=== PATIENT | female | born 1950 | race African-American/Black ===

== ENCOUNTER → 2020-07-07 | Outpatient (CLI) | payer MEDICARE, OTHER ==
[2015-07-03 15:43] VITALS: BP 106/72
[~2020-07-07] MED LIST: ACET1TAB33 PO; CELE100C PO; CENTRUM CHEWAB1 EACH PO; CHOL100013 PO; MELO15TA23 PO; NAPR220T70 PO; OXYC1TAB15 PO; WARF-31 PO
--- NOTE | 2020-07-07 13:49 | EKG ---
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
[2020-07-07 14:09] LABS: BASO % 0 % (0-3); EOS % 1 % (0-3); HEMATOCRIT 38.8 % (36.0-47.0); HEMOGLOBIN 12.7 g/dL (12.0-15.5); LYMPH # 1.6 x10^3/uL (1.0-4.8); LYMPH % 44 % (24-48); MEAN CORPUSCULAR HEMOGLOBIN 30 pg (25-35); MEAN CORPUSCULAR HGB CONC 33 g/dL (31-37); MEAN CORPUSCULAR VOLUME 91 fL (79-100); MONO # 0.3 x10^3/uL (0.0-1.1); MONO % 8 % (0-9); NEUT # 1.8 x10^3/uL (1.8-7.7); NEUT % 47 % (31-73); PLATELET COUNT 239 x10^3/uL (140-400); RED BLOOD COUNT 4.28 x10^6/uL (3.50-5.40); RED CELL DISTRIBUTION WIDTH 14.5 % (11.5-14.5); WHITE BLOOD COUNT 3.7 x10^3/uL (4.0-11.0)
[2020-07-07 14:10] LABS: ALBUMIN 3.9 g/dL (3.4-5.0); CALCIUM 8.6 mg/dL (8.5-10.1); GFR 66.5; POTASSIUM 3.9 mmol/L (3.5-5.1)
[2020-07-07 14:12] LABS: PROTHROMBIN TIME PATIENT 12.8 SEC (11.7-14.0)
--- NOTE | 2020-07-07 14:56 | RAD ---
Chest, PA and Lateral: Technique: PA and lateral views of the chest were obtained. History: Presurgical evaluation. Comparison: None. Findings/ impression: Mild cardiomegaly. There is small focal airspace opacity or mass identified in the retrocardiac regio n best seen on the lateral view. Recommend follow-up CT for further evaluation. Electronically signed by: Samuel Serna MD (07/07/2020 2:53 PM) [id number]
[2020-07-08 02:13] LABS: HEMOGLOBIN A1C 5.6 % (4.8-5.6)
== END ==
LOC: SURGPAT 12:37
PROVIDERS: ATTEND Orthopaedic Surgery
DX: Z01.818 Encounter for other preprocedural examination (principal); M17.12 Unilateral primary osteoarthritis, left knee; I51.7 Cardiomegaly
CPT/HCPCS: 36415; 71046; 80048; 82040; 83036; 85025; 85610; 85651; 87641; 93005

== ENCOUNTER → 2020-07-15 | Outpatient (CLI) | payer MEDICARE, OTHER ==
[2015-07-03 15:43] VITALS: BP 106/72
--- NOTE | 2020-07-15 09:36 | RAD ---
CT THORAX WO History: Chest pain Comparison: None. Technique: Noncontrast CT of the chest. Findings: Assessment is limited by lack of IV contrast. Aorta and great vessels: No aneurysm of the aortic arch or thoracic aorta is seen. Tortuous contours. No significant atherosclerotic calcification. Thyroid: No significant abnormalities. Mediastinum and caleb: Calcified subcarinal lymph nodes. No enlarged adenopathy. Esophagus: The visualized esophagus is normal. Heart: The heart is normal in size. There is no pericardial effusion. No coronary artery calcificatio n. Trachea: The visualized tracheobronchial tree is normal. Lungs: No airspace consolidation. Calcified right lung base 5 mm granuloma. Pleural space: There is no pneumothorax or pleural effusion. Upper abdomen: 1.3 cm right renal pelvic nephrolith. 3 mm right upper pole nephrolith. Cholecystectom y clips. 1.5 cm right hepatic lobe hypodensity measuring 24 Hounsfield units. Partially visualized la paroscopic adjustable band in appropriate position with filling port the anterior abdominal wall. Osseous structures and soft tissues: Multilevel degenerative changes of the spine. Impression: 1. No etiology for chest pain identified. 2. Calcified granulomatous disease in the subcarinal lymph nodes and right lung base. 3. Indeterminate 1.5 cm right hepatic lobe hypodensity may represent hemangioma. Recommend liver MRI or CT with contrast for complete evaluation. 4. Right cholelithiasis including 1.3 cm renal pelvic nephrolith. ------ Exposure: One or more of the following individualized dose reduction techniques were utilized for thi s examination: 1. Automated exposure control 2. Adjustment of the mA and/or kV according to patient size 3. Use of iterative reconstruction technique. Electronically signed by: Hermes Berry MD (07/15/2020 9:33 AM) [facility]
== END ==
LOC: CT 08:22
PROVIDERS: ATTEND Orthopaedic Surgery
DX: J84.10 Pulmonary fibrosis, unspecified (principal); J98.4 Other disorders of lung
CPT/HCPCS: 71250

== ENCOUNTER 2020-07-27 06:05 | Inpatient (IN) | payer MEDICARE, OTHER ==
[2020-07-07 13:10] VITALS: BP 149/107
[2020-07-27] VITALS (12 sets, daily range): BP systolic 104–156; BP diastolic 68–94
[~2020-07-27] VITALS: Ht 170.2 cm; Wt 106.2 kg
[~2020-07-27 06:05] MED LIST changes: +ACETAMINOPHEN 500 MG TABLET PO PRN; +CELECOXIB 100 MG CAPSULE. PO PRN; +HYDROmorphone 2 MG/ML VIAL IVP PRN; +IV RINGERS,LACTATED 1000ML 1,000 ML IV SCH; +MORPHINE SULFATE 2 MG/ML VIAL. IVP PRN; +TRANEXAMIC ACID 1,000 MG in IV NS 50ML -- 1ST BAG INJ ONE; +TV=100ml MORPHINE 5 MG, KETOROLAC 30 MG, ROPIVacaine 0.5% PF 60 ML, EPINEPH... INT ART ONE; +fentaNYL PF VIAL 100 MCG/2 ML VIAL IVP PRN
[2020-07-27] MEDS ORDERED: PROPOFOL 10 MG/ML (20ML) VIAL. IV ONE (06:51)
[2020-07-27] MEDS ORDERED: LIDOCAINE 2% PF 5 ML VIAL. ONE (06:51)
[2020-07-27] MEDS ORDERED: fentaNYL PF VIAL 100 MCG/2 ML VIAL ONE ×3 (06:51→10:40)
[2020-07-27] MEDS ORDERED: TOBRAMYCIN POWDER 1.2 GM VIAL. ONE (07:01)
[2020-07-27] MEDS ORDERED: BUPIVACAINE MPF 0.25% 30 ML VIAL. ONE (07:01)
[2020-07-27] MEDS ORDERED: TRANEXAMIC ACID in NS IVPB 50 ML ONE (07:01)
[2020-07-27] MEDS ORDERED: methylPREDNISolone ACETATE 80 MG/ML VIAL. ONE (07:01)
[2020-07-27] MEDS ORDERED: VANCOMYCIN 1 GM VIAL. ONE ×2 (07:02)
[2020-07-27] MEDS ORDERED: DEXAMETHASONE SOD PHOS 4 MG/ML VIAL ONE (07:42)
[2020-07-27] MEDS ORDERED: SEVOFLURANE 61 TO 120 MINUTES. IH ONE ×2 (07:42→10:15)
--- NOTE | 2020-07-27 07:47 | PDOC1 ---
History and Physical Date of Admission Date of Admission DATE: 07/27/20 TIME: 07:42 Identification/Chief Complaint Chief Complaint Left knee osteoarthritis pain Source Source: Chart review, Patient History of Present Illness History of Present Illness 70-year-old woman with left knee osteoarthritis, here today for elective left total knee arthroplasty. Previous patient whose right knee I replaced on 06/30/15; she is very happy with this knee. Now, she locates progressive knee pain for years that has recently progressed. Her pain is mostly medial with giving out that scares her of falling. Her pain is impacting her quality of life and ability to participate in desired activities. So far, she's tried modified activity, rest, bracing, and NSAIDs without relief. She does form keloid scars. Denies smoking or any known metal/nickel allergy. Past Medical History Musculoskeletal: Osteoarthritis Past Surgical History Past Surgical History total right knee arthroplasty back surgery lap band Bunionectomy cholecystectomy Family History Family History: Heart Disease, Kidney Disease Social History Smoke: No ALCOHOL: occassional Current Medications Current Medications Current Medications Fentanyl Citrate (Fentanyl 2ml Vial) 25 mcg PRN Q5MIN PRN IVP MILD PAIN 1-3; Start 07/27/20 at 06:00; Stop 07/27/20 at 20:00 Fentanyl Citrate (Fentanyl 2ml Vial) 50 mcg PRN Q5MIN PRN IVP MODERATE PAIN 4- 6; Start 07/27/20 at 06:00; Stop 07/27/20 at 20:00 Morphine Sulfate (Morphine Sulfate) 1 mg PRN Q10MIN PRN IVP SEVERE PAIN 7-10; Start 07/27/20 at 06:00; Stop 07/27/20 at 20:00 Ringer's Solution 1,000 ml @ 30 mls/hr Q24H IV Last administered on 07/27/20at 07:18; Start 07/27/20 at 06:00; Stop 07/27/20 at 17:59 Hydromorphone HCl (Dilaudid) 0.5 mg PRN Q10MIN PRN IVP SEVERE PAIN 7-10, 2nd C HOICE; Start 07/27/20 at 06:00; Stop 07/27/20 at 20:00 Prochlorperazine Edisylate (Compazine) 5 mg PACU PRN PRN IVP NAUSEA, MRX1; Start 07/27/20 at 06:00; Stop 07/27/20 at 20:00 Celecoxib (CeleBREX) 400 mg 1X PREOP PRN PO PRIOR TO PROCEDURE; Start 07/27/20 at 06:00; Stop 07/27/20 at 15:00 Acetaminophen (Tylenol) 1,000 mg 1X PREOP PRN PO PRIOR TO PROCEDURE Last administered on 07/27/20at 07:19; Start 07/27/20 at 06:00; Stop 07/27/20 at 18:00 Cefazolin Sodium/ Dextrose 50 ml @ 100 mls/hr 1X PREOP PRN IV PRIOR TO PROCEDURE; Start 07/27/20 at 06:00; Stop 07/27/20 at 18:00 Morphine Sulfate 5 mg/Ketorolac Tromethamine 30 mg/Ropivacaine 60 ml/Epinephrine HCl 0.5 mg/Sodium Chloride 100 ml @ 100 mls/hr 1X PERIOP ONCE INT ART ; Start 07/27/20 at 06:00; Stop 07/27/20 at 06:59; Status DC Tranexamic Acid 50 ml @ 50 mls/hr 1X PERIOP ONCE INJ ; Start 07/27/20 at 06:00; Stop 07/27/20 at 06:59; Status DC Tranexamic Acid 50 ml @ 50 mls/hr 1X PERIOP ONCE INJ ; Start 07/27/20 at 08:00; Stop 07/27/20 at 08:59 Propofol (Diprivan) 200 mg STK-MED ONCE IV ; Start 07/27/20 at 06:51; Stop 07/27/20 at 06:51; Status DC Lidocaine HCl (Lidocaine Pf 2% Vial) 5 ml STK-MED ONCE .ROUTE ; Start 07/27/20 at 06:51; Stop 07/27/20 at 06:51; Status DC Fentanyl Citrate (Fentanyl 2ml Vial) 100 mcg STK-MED ONCE .ROUTE ; Start 07/27/20 at 06:51; Stop 07/27/20 at 06:51; Status DC Bupivacaine HCl (Sensorcaine Mpf 0.25%) 30 ml STK-MED ONCE .ROUTE ; Start 07/27/20 at 07:01; Stop 07/27/20 at 07:01; Status DC Tranexamic Acid 50 ml @ As Directed STK-MED ONCE .ROUTE ; Start 07/27/20 at 07:01; Stop 07/27/20 at 07:01; Status DC Tobramycin Sulfate (Tobramycin Powder) 1.2 gm STK-MED ONCE .ROUTE ; Start 07/27/20 at 07:01; Stop 07/27/20 at 07:01; Status DC Methylprednisolone Acetate (DEPO-Medrol 80MG VIAL) 80 mg STK-MED ONCE .ROUTE ; Start 07/27/20 at 07:01; Stop 07/27/20 at 07:01; Status DC Tranexamic Acid 50 ml @ As Directed STK-MED ONCE .ROUTE ; Start 07/27/20 at 07:01; Stop 07/27/20 at 07:02; Status DC Vancomycin HCl (Vancomycin) 1 gm STK-MED ONCE .ROUTE ; Start 07/27/20 at 07:02; Stop 07/27/20 at 07:02; Status DC Vancomycin HCl (Vancomycin) 1 gm STK-MED ONCE .ROUTE ; Start 07/27/20 at 07:02; Stop 07/27/20 at 07:02; Status DC Active Scripts Active Reported Acetaminophen-Cod #3 Tablet (Acetaminophen/Codeine Phosphate) 1 Each Tablet 1 Tab PO PRN Q6HRS PRN Meloxicam 15 Mg Tablet 15 Mg PO DAILY Vitamin D (Cholecalciferol (Vitamin D3)) 1,000 Unit Capsule 1 Cap PO DAILY LAST DOSE GIVEN: DATE: 07/02 TIME: 9 am NEXT DOSE DUE: DATE: 07/03 TIME: 9 am Allergies Allergies: Coded Allergies: iodine (Verified Allergy, Intermediate, Rash, 07/27/20) ROS Review of System OPHTHALMOLOGY: Blurred vision none. Double vision denies. Change in vision none. ENT: Hearing loss none. Change in voice denies. Rhinorrhea none. CARDIOLOGY: Palpitations none. Shortness of breath admits. Chest pain denies. CONSTITUTIONAL: Fever denies. Chills denies. Weight gain denies. Weakness admits. weight loss denies. Fatigue admits. GASTROENTEROLOGY: Diarrhea denies. Vomiting none. Dysphagia none. UROLOGY: Voiding normally yes. Hematuria none. MUSCULOSKELETAL: Chronic back or neck pain denies. Swelling of the feet, hands, ankles and /or legs denies. Joint pain no. Tingling/numbness no. DERMATOLOGY: Rash admits. Lumps none. NEUROLOGY: Dizziness/lightheadedness denies. Double vision, temporary blindness denies. Tingling/numbness none. PSYCHOLOGY: Change in mood or personality denies. Memory loss none. ENDOCRINOLOGY: Obesity denies. Fatigue none. Weight loss none. HEMATOLOGY/LYMPH: Hepatitis denies. Enlarged lymph nodes denies. Physical Exam General: Alert, Cooperative HEENT: Atraumatic Lungs: Normal air movement Heart: RRR Abdomen: Soft Extremities: Other (The LEFT knee shows a mildly antalgic gait. There is slight varus alignment. No masses. No detectable effusion. Tenderness on the joint lines. Range of motion is 0-120 degrees. There is crepitus with range of motion, and pain at the extremes of motion. The knee is stable to varus and valgus stress without subluxation or laxity. Muscle strength is slightly weak for the quadriceps 4+/5 which may be due to pain or avoidance, and does not seem neurogenic, and the muscle tone and bulk is slightly decreased. The hamstring strength is 5/5. The skin is normal with no scars, rashes, lesions or ulcers. Light touch sensation is intact. No edema and no varicosities. Dorsalis pedis pulse is intact and capillary refill is normal. ) Skin: No breakdown, No significant lesion Neuro: Normal speech, Normal tone, Sensation intact Vitals Vitals Vital Signs Date Time Temp Pulse Resp B/P (MAP) Pulse Ox O2 Delivery O2 Flow Rate FiO2 07/27/20 07:09 97.3 72 18 132/87 95 Room Air 97.3 Images Images [facility] [address] [place], [place] [id number] IMAGING REPORT Signed PATIENT: TERRIE PRECIADO ACCOUNT: [id number] : 1950 LOCATION: [facility] AGE: 70 SEX: F EXAM STATUS: PRE CLI ORD. PHYSICIAN: CHRISTINA OZUNA MD REASON: PROCEDURE: KNEE LEFT 2V EXAM: Bilateral knees, standing view; left knee, 2 views. HISTORY: Pain. COMPARISON: 06/30/2015 FINDINGS: A standing view both knees and 2 views of the left knee are obtained. There is a right knee arthroplasty in expected position. There is severe medial compartment joint space narrowing of the left knee and moderate to severe left knee chronic bilateral spurring. There is mild left genu varus. There is minimal enthesopathy along the superior left patella. IMPRESSION: 1. Severe medial compartment predominant osteoarthritis of the left knee with slight genu varus. 2. Right knee arthroplasty in expected position. Electronically signed by: Josefina Gross MD (06/02/2020 3:25 PM) [id number] VTE Prophylaxis Ordered VTE Prophylaxis Devices: Yes VTE Pharmacological Prophylaxi: Yes Assessment/Plan Assessment/Plan She has osteoarthritis of her left knee. We reviewed her radiographs together and discussed the natural history of the condition along with risks, benefits, and alternatives to treatment. Given her failure of nonoperative measures with continued severe pain and loss of function, my recommendation is joint replacement. Plan for left total knee arthroplasty. We discussed the potential risks of infection, neurovascular injury, fracture, bleeding, blood clots, malalignment, need for revision surgery, or other potential surgical or anes thetic complications. I recommended the robotic CORI instrumentation and we discussed my reasoning. We also discussed postoperative treatment and expectations including dental antibiotic prophylaxis and residual numbness over the knee. All of her questions were answered and she desires to proceed with total knee replacement. She is here today for elective left total knee arthroplasty with robotic assistance. Justifications for Admission Other Justification CHRISTINA OZUNA MD July 27, 2020 07:47
[2020-07-27] MEDS ORDERED: ePHEDrine PF IN SALINE 50 MG/10 ML SYRINGE. IV ONE (07:48)
[2020-07-27] MEDS ORDERED: ONDANSETRON PF 4 MG/2 ML VIAL. ONE ×2 (07:57→09:01)
[2020-07-27] MEDS ORDERED: TRANEXAMIC ACID 1,000 MG in IV NS 50ML -- 2ND BAG INJ ONE (08:00)
--- NOTE | 2020-07-27 10:36 | PDOC4 ---
Operative Note Operative Note Date of Procedure: July 27, 2020 Pre-Op Diagnosis: Unilateral primary osteoarthritis, left knee. M17.12 Post-Op Diagnosis: same Procedure: left total knee arthroplasty with patella resurfacing, robotic assisted, CPT 27587 Surgeon: Christina Hodge MD Double Backer: JOE Sin Anesthesia: General EBL: 150 mL Specimens Obtained: left knee bone and soft tissue Complications: none Drains: pain catheter Tourniquet time: 85 Minutes Tourniquet Pressure: 300 mm Hg Indications for Procedure: Knee arthritis pain, affecting quality of life, unrelieved by nonoperative management Findings: Severe osteoarthritis with bone on bone contact in all three compartments, most severe medially Implants: Nichols [employer] Nephew Journey II Total Knee System, Size 5 left bicruciate stabilized Journey II BCS Oxinium femoral component, size 5 left Journey nonporous tibial baseplate, size 5-6 12 mm left Journey II BCS XLPE articular insert, 35 mm oval Jimena II resurfacing patellar component Procedure in Detail: The patient was identified in the preoperative holding area, and the correct l eft lower extremity was marked by me. The patient was taken to the operating room where the patient was anesthetized by the Department of Anesthesia. Preoperative antibiotics were given intravenously. Tranexamic acid 1 g was given intravenously for intraoperative hemostasis. A "time-out" procedure was performed. The patient was positioned supine on the operative table with a tourniquet on the upper left thigh. A left hip bump and heel bump were attached to the operating table for later intraoperative positioning. The left lower limb was thoroughly scrubbed, then sterile Chloraprep solution was applied, and the limb was draped in sterile fashion. The operating team wore exhaust ventilated hoods with Remicalm Personal Protection Toga Zippered Peel-Away protection system. An impervious stockinet and an adhesive drape were used such that the skin was entirely covered. (I usually use Ioban but the patient has an iodine allergy so I used a clear adhesive drape.) The limb was exsanguinated with an Esmarch ba ndage, and the tourniquet was inflated. A midline skin incision was made with a scalpel using the patella and tibial tubercle as landmarks. Electrocautery was used for hemostasis. My service assistant used rake retractors and a laparotomy sponge. A medial parapatellar arthrotomy incision was used with extension into the distal quadriceps tendon. The patella was retracted laterally and Hohmann retractors were now used by my service assistant. Excess synovium, the menisci, and the cruciate ligaments were resected sharply. A periarticular multimodal ropivacaine anesthetic injection was used in the suprapatellar pouch and distal quadriceps muscle. The patella was everted and exposed. The patella thickness was measured with a caliper, and then cut freehand with a saw, using caliper measurements to assess the resection. The lateral retinaculum was partially released from the lateral patella using electrocautery. Rongeurs were used to make sure there were no remaining exposed patellar osteophytes medially or laterally. The patella was sized, and then drilled for an oval three-peg patella component. The tibial tracker array for the CORI system was applied to the tibial crest four finger breadths below the tibial tubercle, using percutaneous incisions and bicortical pins. The femoral tracker array was applied outside of the original incision using two separate stab incisions using bicortical pins. Checkpoint verification pins were not used, and the checkpoints used were on the arrays. Using the point probe, the medial and lateral malleoli were localized and the locations were stored. The center of the tibia was noted at the anterior cruciate ligament insertion and stored. The center of the femur was marked at the intersection of Wh[place]ess line with the transepicondylar axis. The hip center calculation was performed with range of motion of the hip. The femur neutral position was identified, and simulated weightbearing was performed with axial compression on the foot. Range of motion without stress was performed and the data collected. Range of motion with valgus stress, and range of motion with varus stress data collection was also performed. Rotational references include the Whitesidess line, and the trans-epicondylar axis. The femoral articular surface was now mapped in 3 dimensions using the point probe and digital data collected. The tibial condyle articular surfaces and cortical edges were mapped in 3 dimensions using the point probe including the medial and lateral tibial plateau. Implant planning was now performed on-screen with manipulation of the implant sizes, cut thicknesses and gaps, component rotation, component flexion/extension and component varus/valgus until satisfactory ligament balance, alignment and stability of the knee was expected throughout the range of motion. No additional releases were required. I did careful excision of medial osteophytes and medial joint line dissection due to the varus malalignment. My service assistant held a Hohmann retractor, a medial Z-retractor, and an [place] retractor to protect the medial and lateral collateral ligaments, the patellar tendon, the skin and the other soft tissues. The point probe was used to confirm the location of the checkpoint verification pins. The distal femoral surface was now prepared using CORI handpiece for bone removal to the previously planned distal femoral resection. The crosshairs at the pin locations were marked by using a mallet and the point probe for definitive location. A 5-in-1 Journey II cutting guide was then applied and the position was checked with the virtual vonnie wing from the CORI to ensure proper placement as the pins were applied. The posterior, anterior, and all chamfer cuts were made with the oscillating saw. Excess bone was removed with an osteotome and rongeurs. The tibial cutting guide was applied, positioned using the CORI virtual vonnie wing, and secured to the upper tibia using three pins at the previously planned location. The virtual vonnie wing was used to confirm the resection depth, slope and coronal alignment. The upper tibia was cut made with an oscillating saw. My service assistant held Hohmann retractors and a posterior cruciate ligament retractor to protect the medial and lateral collateral ligaments, the patellar tendon, the skin, the peroneal nerve and the other soft tissues. The upper tibia was sized with a trial baseplate. The posterior compartment was cleared of osteophytes and loose bodies. The periarticular anesthetic injection was used in the posterior compartment. The box cut for a posterior stabilized component was made. A preliminary reduction was performed with a trial femur, trial tibial baseplate and trial polyethylene. The CORI system was used to confirm range of motion, and postoperative stressed gap assessment. The stability was assessed using differ ent thicknesses of tibial articular surface to find satisfactory stability and good range of motion. The rotation of the tibial component was marked on the upper tibia. Final trial reduction was now performed verifying patella tracking and tibiofemoral stability and alignment. The bone pins and tracker arrays were removed, and the checkpoint verification pins were removed. The tibia preparation was completed with a drill, saw, and fin punch at the previously noted rotation. The final implants were verified and opened. Outer gloves were changed by the operating team. Lavage for this patient was with Bactisure solution. I usually use Betadine lavage but the patient has an iodine allergy. After the Bactisure solution another liter of saline was used to rem ove all of the Bactisure. The [place] InterPulse medical administrative was used for all of this irrigation. After the bone cuts were irrigated with saline using the [place] InterPulse device the cut bone surfaces were dried with suction and laparotomy sponges. Two packages of Nichols + Nephew Rally HV bone cement were mixed in powdered form with Vancomycin 1gm and Tobramycin 1.2 gm, and then vacuum-mixed with the monomer, and placed into a cement gun. The cut surfaces of the bone were thoroughly dried with suction and with laparotomy sponges for cement interdigitation. The final components were cemented into place. The knee was kept at full extension while the cement hardened, and excess cement was removed. Tranexamic acid 1 g was redosed intravenously for additional intraoperative hemostasis. The tourniquet was released, and electrocautery was used for hemostasis. A final periarticular anesthetic injection was used for pain relief. The bone pin sites on the tibial crest were closed with #3-0 Nylon sutures. A final check of [id number] and stability was made, and the polyethylene implant final size was chosen. The polyethylene implant was secured to the tibial baseplate, and the knee was reduced a final time and range of motion and stability was confirmed. Thorough irrigation was used. A pain catheter was inserted. Topical Vancomycin 1 gm was used during the closure. The arthrotomy was closed with interrupted [id number] #1 Vicryl suture. The subcutaneous tissues were approximated initially with #2-0 Vicryl inverted interrupted sutures by my service assistant. Next the subcuticular layer was approximated in a running fashion with #3-0 STRATAFIX suture by my service assistant. The skin incision was then covered and reinforced by my service assistant with Acticoat, followed by a CHANDLER single use negative pressure wound therapy dressing Soft roll and an Martin wrap were applied. Needle and sponge counts were correct. There were no apparent complications. The patient returned to the recovery room in stable condition. CHRISTINA HODGE MD July 27, 2020 10:36
[2020-07-27] MEDS ORDERED: PROCHLORPERAZINE 10 MG/2 ML VIAL. ONE (10:40)
[2020-07-27] MEDS: fentaNYL PF VIAL 100 MCG/2 ML VIAL IVP PRN ×3 (10:44→13:20)
[2020-07-27] MEDS ORDERED: MORPHINE SULFATE 4 MG/ML VIAL. IVP PRN (10:45)
[2020-07-27] MEDS ORDERED: ZOLPIDEM 5 MG TABLET. PO PRN (10:45)
[2020-07-27] MEDS ORDERED: CALCIUM CARBONATE 500 MG TAB.CHEW PO PRN (10:45)
[2020-07-27] MEDS ORDERED: DEXTROSE 50% 25 GM / 50ML DISP.SYRIN. IV PRN (10:45)
[2020-07-27] MEDS ORDERED: 0.9 % SODIUM CHLORIDE 10 ML DISP.SYRIN. IV PRN (10:45)
[2020-07-27] MEDS ORDERED: METOCLOPRAMIDE HCL 10 MG/2 ML VIAL. IVP PRN (10:45)
[2020-07-27] MEDS ORDERED: fentaNYL PF VIAL 100 MCG/2 ML VIAL IVP PRN (10:45)
[2020-07-27] MEDS ORDERED: PROCHLORPERAZINE 5 MG TABLET. PO PRN (10:45)
[2020-07-27] MEDS ORDERED: diphenhydrAMINE 50 MG/ML VIAL IVP PRN (10:45)
[2020-07-27] MEDS: PROCHLORPERAZINE 10 MG/2 ML VIAL. IVP PRN ×2 (10:46→13:17)
[2020-07-27] MEDS ORDERED: oxyCODONE/APAP 5/325 1 TAB TABLET PO PRN (11:00)
--- NOTE | 2020-07-27 12:31 | RAD ---
EXAM: Left knee, 2 views. HISTORY: Arthroplasty. COMPARISON: 06/02/2020. FINDINGS: 2 views of the left knee are obtained. There is a left knee arthroplasty in expected positi on. There is surrounding soft tissue gas and joint fluid and there are track ann within the distal femur and proximal tibia due to recent surgery. IMPRESSION: Left knee arthroplasty in expected position. Electronically signed by: Josefina Gross MD (07/27/2020 12:28 PM) [id number]
[2020-07-27] MEDS: IV NORMAL SALINE 1000ML BAG 1,000 ML IV SCH (13:42)
--- NOTE | 2020-07-27 14:14 | PDOC ---
Provider Note Date of Service: DATE: 07/27/20 TIME: 14:14 Provider Note Report reviewed, images independently reviewed. Satisfactory total knee arthroplasty without apparent complications. [facility] [address] [place] [address] IMAGING REPORT Signed PATIENT: TERRIE PRECIADO ACCOUNT: [id number] : 1950 LOCATION: [address] [place] [address] AGE: 70 SEX: F EXAM STATUS: ADM IN ORD. PHYSICIAN: CHRISTINA OZUNA MD REASON: Pt in PACU-AP lateral PROCEDURE: KNEE LEFT 2V EXAM: Left knee, 2 views. HISTORY: Arthroplasty. COMPARISON: 06/02/2020. FINDINGS: 2 views of the left knee are obtained. There is a left knee arthroplasty in expected position. There is surrounding soft tissue gas and joint fluid and there are track ann within the distal femur and proximal tibia due to recent surgery. IMPRESSION: Left knee arthroplasty in expected position. Electronically signed by: Josefina Grsos MD (07/27/2020 12:28 PM) [id number] Justifications for Admission Other Justification CHRISTINA OZUNA MD July 27, 2020 14:14
--- NOTE | 2020-07-27 16:46 | NUR ---
received from recovery. she is denying pain at this time. when she ambulated to the bathroom; originally she was dizzy. it resolved with sitting a few minutes before walking. she voided and returned to the recliner. continues to state her pain is 2-3. no medication required at this time. she has good pulses, sensation and motion bilaterral lower extremities.
[2020-07-27] MEDS: ONDANSETRON ODT 4 MG TAB.RAPDIS. PO SCH ×2 (17:03→23:54)
[2020-07-27] MEDS: ONDANSETRON PF 4 MG/2 ML VIAL. IVP SCH ×2 (17:03→23:54)
[2020-07-27] MEDS: KETOROLAC 30MG VIAL 30 MG, BUPIVACAINE MPF 0.25% 20 ML, EPINEPHrine 0.5 MG in TOTAL VOL... INT ART SCH ×2 (17:04→19:00)
[2020-07-27] MEDS: FERROUS SULFATE 325 MG TABLET. PO SCH (17:04)
[2020-07-27] MEDS: ASPIRIN ENTERIC COATED 325 MG TABLET.DR. PO SCH (21:05)
[2020-07-27] MEDS: oxyCODONE/APAP 5/325 1 TAB TABLET PO PRN (21:08)
[2020-07-28 03:15] VITALS: BP 120/76
[2020-07-28] MEDS: ONDANSETRON PF 4 MG/2 ML VIAL. IVP SCH ×2 (05:37→12:00)
[2020-07-28] MEDS: KETOROLAC 30MG VIAL 30 MG, BUPIVACAINE MPF 0.25% 20 ML, EPINEPHrine 0.5 MG in TOTAL VOL... INT ART SCH (05:37)
[2020-07-28] MEDS: ONDANSETRON ODT 4 MG TAB.RAPDIS. PO SCH ×2 (05:37→12:00)
[2020-07-28] MEDS ORDERED: MAGNESIUM HYDROXIDE 2,400 MG/30 ML ORAL.SUSP. PO PRN (06:00)
[2020-07-28 06:28] VITALS: BP 97/62
[2020-07-28] MEDS: CHOLECALCIFEROL (VITAMIN D3) 1,000 UNIT TABLET PO SCH (08:28)
[2020-07-28] MEDS: CELECOXIB 100 MG CAPSULE. PO SCH (08:28)
[2020-07-28] MEDS: SENNOSIDES/DOCUSATE 8.6/50MG TABLET. PO SCH (08:28)
[2020-07-28] MEDS: ASPIRIN ENTERIC COATED 325 MG TABLET.DR. PO SCH ×2 (08:28→20:11)
[2020-07-28] MEDS: FERROUS SULFATE 325 MG TABLET. PO SCH ×2 (08:28→17:06)
[2020-07-28] MEDS: MULTIVITAMIN with MINERAL TABLET. PO SCH (08:28)
[2020-07-28] MEDS: oxyCODONE/APAP 5/325 1 TAB TABLET PO PRN (08:29)
[2020-07-28 08:58] LABS: HEMATOCRIT 36.2 % (36.0-47.0); HEMOGLOBIN 11.6 g/dL (12.0-15.5)
--- NOTE | 2020-07-28 11:15 | NUR ---
During therapy pt c/o lightheadedness and diaphoretic. Therapist place her in reverse Trendelenburg and placed cold cloth over forehead. BP checked 110/72 with heart rate 80. Stated feeling better. Re-checked BP 111/75. Pt return to room. Feeling much better. Encourage pt to increase po fluids. Cont. monitor.
--- NOTE | 2020-07-28 12:00 | NUR ---
No Zofran given. Tolerating diet and po fluids well.
--- NOTE | 2020-07-28 12:35 | PDOC ---
PROGRESS NOTES Date of Service DATE: 07/28/20 TIME: 12:33 Subjective Subjective Doing well. Not yet safe ambulating with walker. Had two near syncopal episodes, one with diaphoresis. No CP or SOB. Feels well now. BP not low when checked after episodes. Hgb is ok. Objective Vital Signs Vital Signs Date Time Temp Pulse Resp B/P (MAP) Pulse Ox O2 Delivery O2 Flow Rate FiO2 07/28/20 09:00 Room Air 07/28/20 06:28 98.1 74 20 97/62 (74) 98 98.1 07/27/20 15:05 4.0 Physical Exam CHANDLER dressing working. CHANDLER has spots of bloody drainage. Calf soft and NT. Homans neg. Able to DF and plantarflex foot with no evidence of neurovascular injury nor compartment syndrome. No blisters. Minimal erythema. Moderate swelling as expected. Labs Laboratory Tests Test 07/28/20 08:05 Hemoglobin 11.6 g/dL (12.0-15.5) Hematocrit 36.2 % (36.0-47.0) Mean Corpuscular Hemoglobin Concent 32 g/dL (31-37) Laboratory Tests Test 07/28/20 08:05 Hemoglobin 11.6 g/dL (12.0-15.5) Hematocrit 36.2 % (36.0-47.0) Mean Corpuscular Hemoglobin Concent 32 g/dL (31-37) Imaging Postop x-rays and report reviewed by me. Satisfactory TKA without apparent complications. PATIENT: TERRIE PRECIADO AACCOUNT: [id number] : 1950 LOCATION: [address] [place] [address] AGE: 70 SEX: F EXAM STATUS: ADM IN ORD. PHYSICIAN: CHRISTINA OZUNA MD REASON: Pt in PACU-AP lateral PROCEDURE: KNEE LEFT 2V EXAM: Left knee, 2 views. HISTORY: Arthroplasty. COMPARISON: 06/02/2020. FINDINGS: 2 views of the left knee are obtained. There is a left knee arthroplasty in expected position. There is surrounding soft tissue gas and joint fluid and there are track ann within the distal femur and proximal tibia due to recent surgery. IMPRESSION: Left knee arthroplasty in expected position. Electronically signed by: Josefina Gross MD (07/27/2020 12:28 PM) [id number] Assessment Assessment POD 1 after TKA. Near syncope episodes seems better now. Observe and follow BP and Hgb. Plan Plan of Care Needs to stay in hospital for safe walker use prior to discharge. Continue DVT prophylaxis and PT. Discharge planning. Justicifation of Admission Dx: Justifications for Admission: Justification of Admission Dx: Yes CHRISTINA OZUNA MD July 28, 2020 12:35
[2020-07-28] MEDS: IV NORMAL SALINE 1000ML BAG 1,000 ML IV SCH (15:00)
[2020-07-28] MEDS ORDERED: BISACODYL 10 MG SUPP.RECT. PR PRN (16:00)
[2020-07-28] MEDS ORDERED: ONDANSETRON ODT 4 MG TAB.RAPDIS. PO PRN (18:00)
[2020-07-28] MEDS ORDERED: ONDANSETRON PF 4 MG/2 ML VIAL. IVP PRN (18:00)
[2020-07-28 18:02] VITALS: BP 111/76
[2020-07-28 22:49] VITALS: BP 105/72
[2020-07-29 02:26] VITALS: BP 105/71
[2020-07-29 06:00] VITALS: BP 120/80
[2020-07-29] MEDS ORDERED: ACETAMINOPHEN 500 MG TABLET PO PRN (07:00)
[2020-07-29] MEDS: MULTIVITAMIN with MINERAL TABLET. PO SCH (08:14)
[2020-07-29] MEDS: CHOLECALCIFEROL (VITAMIN D3) 1,000 UNIT TABLET PO SCH (08:14)
[2020-07-29] MEDS: ASPIRIN ENTERIC COATED 325 MG TABLET.DR. PO SCH (08:14)
[2020-07-29] MEDS: CELECOXIB 100 MG CAPSULE. PO SCH (08:14)
[2020-07-29] MEDS: FERROUS SULFATE 325 MG TABLET. PO SCH (08:14)
[2020-07-29] MEDS: SENNOSIDES/DOCUSATE 8.6/50MG TABLET. PO SCH (08:14)
--- NOTE | 2020-07-29 09:00 | NUR ---
Up in chair. No c/o at this time. Tolerated breakfast. No further issues with low b/p. BP 129/58 with heart rate 74. Cont. monitor.
[2020-07-29 09:52] LABS: HEMOGLOBIN 10.5 g/dL (12.0-15.5)
--- NOTE | 2020-07-29 12:22 | PDOC ---
PROGRESS NOTES Date of Service DATE: 07/29/20 TIME: 12:20 Subjective Subjective Doing well. Planning for discharge today. No further lightheaded episodes. Objective Vital Signs Vital Signs Date Time Temp Pulse Resp B/P (MAP) Pulse Ox O2 Delivery O2 Flow Rate FiO2 07/29/20 07:40 Room Air 07/29/20 06:00 98.6 83 16 120/80 (93) 94 98.6 07/27/20 15:05 4.0 Physical Exam CHANDLER dressing intact with spotty drainage only. Calf thigh and knee benign. Homans neg Labs Laboratory Tests Test 07/28/20 08:05 07/29/20 09:25 Hemoglobin 11.6 g/dL (12.0-15.5) 10.5 g/dL (12.0-15.5) Hematocrit 36.2 % (36.0-47.0) 33.0 % (36.0-47.0) Mean Corpuscular Hemoglobin Concent 32 g/dL (31-37) 32 g/dL (31-37) Laboratory Tests Test 07/29/20 09:25 Hemoglobin 10.5 g/dL (12.0-15.5) Hematocrit 33.0 % (36.0-47.0) Mean Corpuscular Hemoglobin Concent 32 g/dL (31-37) Assessment Assessment POD #2 after TKA . Plan Plan of Snf today. Oral pain meds. Aspirin BID for DVT prophylaxis. Follow up with my office next week. Home Health PT Justicifation of Admission Dx: Justifications for Admission: Justification of Admission Dx: Yes CHRISTINA OZUNA MD July 29, 2020 12:22
--- NOTE | 2020-07-29 12:27 | PDOC3 ---
Discharge Summary Visit Information Date of Admission: July 27, 2020 Date of Discharge: July 29, 2020 Final Diagnosis Osteoarthritis left knee Aftercare after left total knee arthroplasty Brief Hospital Course Allergies Allergies Coded Allergies Type Severity Reaction Last Updated Verified iodine Allergy Intermediate Rash 07/27/20 Yes Vital Signs Vital Signs Date Time Temp Pulse Resp B/P (MAP) Pulse Ox O2 Delivery O2 Flow Rate FiO2 07/29/20 07:40 Room Air 07/29/20 06:00 98.6 83 16 120/80 (93) 94 98.6 07/27/20 15:05 4.0 Lab Results Laboratory Tests Test 07/28/20 08:05 07/29/20 09:25 Hemoglobin 11.6 g/dL (12.0-15.5) 10.5 g/dL (12.0-15.5) Hematocrit 36.2 % (36.0-47.0) 33.0 % (36.0-47.0) Mean Corpuscular Hemoglobin Concent 32 g/dL (31-37) 32 g/dL (31-37) Laboratory Tests Test 07/29/20 09:25 Hemoglobin 10.5 g/dL (12.0-15.5) Hematocrit 33.0 % (36.0-47.0) Mean Corpuscular Hemoglobin Concent 32 g/dL (31-37) Brief Hospital Course 70 year old who presented with knee osteoarthritis, for elective total knee arthroplasty. The patient underwent total knee arthroplasty under general anesthesia the day of admission. Perioperative antibiotics and DVT prophylaxis were used. Postoperatively physical therapy and case management were consulted. The patient progressed and is stable for discharge. Discharge Information Condition at Discharge: Stable Follow Up: Weeks Disposition/Orders: D/C to Home w/ HH Scheduled Cholecalciferol (Vitamin D3) (Vitamin D), 1 CAP PO DAILY, (Reported) Meloxicam (Meloxicam), 15 MG PO DAILY, (Reported) Scheduled PRN Acetaminophen With Codeine (Acetaminophen-Cod #3 Tablet), 1 TAB PO PRN Q6HRS PRN for PAIN, (Reported) Patient Instructions Patient Instructions Continue to weight bearing as tolerated with walker. Keep CHANDLER dressing intact and dry. Cut off CHANDLER "tail" and throw away battery pack on the 7th day after surgery. Tape down CHANDLER tail Leave CHANDLER dressing intact otherwise. Follow up with Dr. Hodge's office as scheduled. Call to reschedule. Continue enteric coated aspirin 325 mg by mouth twice a day for 30 days to prevent blood clots. Justicifation of Admission Dx: Justifications for Admission: Justification of Admission Dx: Yes CHRISTINA HODGE MD July 29, 2020 12:27
--- NOTE | 2020-07-29 12:28 | SNU/HH DC ---
DISCHARGE WITH HOME HEALTH DISCHARGE INFORMATION: Discharge Date: July 29, 2020 Final Diagnosis: Left knee osteoarthritis Aftercare after left total knee arthroplasty Condition on Discharge: Stable HOME HEALTH: Face to Face: I certify this patient is under my care and that I, or a nurse practitioner or physician's administrative assistant office manager working with me, had a face to face encounter that meets the physician face to face encounter requirements with this patient on 07/29/2020 Medical Complications: S/P Joint Replacement RN For Eval/Treatment: No Physical Therapy For: Evalulation/Treatment Occupational Therapy For: Evaluation/Treatment Pt Meets Homebound Status: Unsteady balance w/ amb,, Limited distance walking POST DISCHARGE ORDERS: Activity Instructions for Disc: Activity as tolerated Weight Bearing Status after Di: Full weight bearing, As tolerated Bathing Instructions: Shower-keep dressing dry Wound/Incision Care: Ice to area for comfort, Keep wound/cast CDI, Keep wound elevated, Do not change dressing TREATMENT/EQUIPMENT ORDERS: Adaptive Equipment Issued: None CERTIFICATION STATEMENT: Certification Statement: Certification Statement: Based on the above finding, I certify that this patient is confined to the home and needs intermittent snf care, physical therapy and/or speech therapy, or continues to need occupational therapy.~ This patient is under my care, and I have initiated the establishment of the plan of care.~ This patient will be followed by myself or a community physician who will periodically review the plan of care. Home Meds Reported Medications Acetaminophen With Codeine (ACETAMINOPHEN-COD #3 TABLET) 1 Each Tablet, 1 TAB PO PRN Q6HRS PRN for PAIN, TAB 07/07/20 Meloxicam (MELOXICAM) 15 Mg Tablet, 15 MG PO DAILY for ARTHRITIS, TAB 07/07/20 Cholecalciferol (Vitamin D3) (VITAMIN D) 1,000 Unit Capsule, 1 CAP PO DAILY, #30 CAP 3 Refills LAST DOSE GIVEN: DATE: 07/02 TIME: 9 am NEXT DOSE DUE: DATE: 07/03 TIME: 9 am 06/30/15 CHRISTINA OZUNA MD July 29, 2020 12:28
[2020-07-29] MEDS ORDERED: ASPI325T11 PO (12:59)
[2020-07-29] MEDS: IV NORMAL SALINE 1000ML BAG 1,000 ML IV SCH (15:00)
[2020-07-29 15:17] VITALS: BP 116/76
--- NOTE | 2020-07-29 16:05 | NUR ---
Discharge instructions given with prescription sent to pharmacy via electronically. Answered questions and concerns. Verbalized understanding. Pt discharged home accompanied by daughter. Escorted out by w/c.
--- NOTE | 2020-07-30 17:07 | PATHOLOGY ---
[facility] Accession Number: [id number] . 01 Material submitted: . knee - LEFT KNEE BONE AND SOFT TISSUE. Modifiers: left . 01 Clinical history: . LEFT KNEE OSTEOARTHRITIS LEFT KNEE ARTHROPLASTY W/ ROBOTIC ASSIST . 02 Diagnosis: Segments of bone and soft tissue, robotic-assisted left total knee arthroplasty: - Focally advanced degenerative arthritis. . (JPM:mml; 07/30/2020) [facility] 07/30/2020 1253 Local . 02 Electronically signed: . Benja Phelan MD, Pathologist NPI- [id number] . 01 Gross description: . The specimen is received in formalin, labeled "Mary Goldsmith, left knee bone and soft tissue" received is a 8.2 cm aggregate of multiple irregular to rounded fragments of bone consistent with a knee joint. The articular surfaces are worn, irregular and eroded. On sectioning, mi-white areas of eburnation are noted. Dentistry Professor, decalcified sections are submitted in one cassette A1.([facility]; 07/28/2020) [facility]ICENTE 07/28/2020 1640 Local . 02 Pathologist provided ICD-10: M17.12 . 02 CPT . 869035, 365387 Specimen Comment: A courtesy copy of this report has been sent to [phone] Specimen Comment: Report sent to Performed at: 01 [facility] [address], [place] [id number] MD Abad Lobato MD Phone: [phone] Performed at: 02 [facility] [address] [place], [place] [id number] MD Benja Phelan MD Phone: [phone]
== END 2020-07-29 16:05 | disposition home health service (06) | DRG 470 ==
LOC: SURG 06:05 → 4 SOUTHEST 10:36 → OBSVTOIN 07-28 13:04
PROVIDERS: ADMIT Orthopaedic Surgery; ATTEND Orthopaedic Surgery
PROC: 0SRD069 Replacement of Left Knee Joint with Oxidized Zirconium on Polyethylene Synthetic Substitute, Cemented, Open Approach (ICD-10-PCS; principal; 2020-07-28)
PROC: 8E0Y0CZ Robotic Assisted Procedure of Lower Extremity, Open Approach (ICD-10-PCS; 2020-07-28)
DX: M17.12 Unilateral primary osteoarthritis, left knee (principal); M21.162 Varus deformity, not elsewhere classified, left knee; L91.0 Hypertrophic scar; Z96.651 Presence of right artificial knee joint; Z91.041 Radiographic dye allergy status; Z90.49 Acquired absence of other specified parts of digestive tract; Z82.49 Family history of ischemic heart disease and other diseases of the circulatory system
CPT/HCPCS: 36415; 73560; 85014; 85018; 86850; 86900; 86901; 88302; 88311; A4213; A4930; A6253; A6258; A6450; A6454; C1713; C1755; C1776; G0378; G0379; J0171; J0690; J0780; J1040; J1100; J1885; J2270; J2405; J2704; J2795; J3010; J3260; J3370; J3490; J7030; 97110-GP; 97116-GP; 97150-GP; 97530-GO; 97530-GP; 97535-GO

== ENCOUNTER → 2020-09-30 | Outpatient (CLI) | payer MEDICARE, OTHER ==
[~2020-09-30] MED LIST changes: -ACETAMINOPHEN 500 MG TABLET PO PRN; +ASPI325T11 PO; -CELECOXIB 100 MG CAPSULE. PO PRN; -HYDROmorphone 2 MG/ML VIAL IVP PRN; -IV RINGERS,LACTATED 1000ML 1,000 ML IV SCH; -MORPHINE SULFATE 2 MG/ML VIAL. IVP PRN; -TRANEXAMIC ACID 1,000 MG in IV NS 50ML -- 1ST BAG INJ ONE; -TV=100ml MORPHINE 5 MG, KETOROLAC 30 MG, ROPIVacaine 0.5% PF 60 ML, EPINEPH... INT ART ONE; -fentaNYL PF VIAL 100 MCG/2 ML VIAL IVP PRN
--- NOTE | 2020-09-30 14:23 | KCIC ---
EXAM: MRI ABDOMEN WITHOUT CONTRAST. HISTORY: Liver lesion. TECHNIQUE: MRI of the abdomen was performed without intravenous contrast. COMPARISON: 07/15/2020. FINDINGS: Liver: There is no significant steatosis. A 13 mm T2 hyperintense lesion in hepatic segment 8 is cons istent with a cyst. Another ill-defined region of mild hyperintensity subcapsular position segment 6 measures 2.3 x 1.6 cm superior to a more discrete 5 mm. There are no suspicious hepatic lesions. Biliary tree: The gallbladder is surgically absent. The common duct is not dilated. There are no susp icious pancreatic parenchymal lesions. Note is made of pancreas divisum. The pancreatic duct is not d ilated. Other findings: A calculus within the right renal collecting system measures 11 mm as better demonstr ated on. Urothelial thickening is no hydronephrosis currently. Bilateral renal cysts measure up to 4. 4 cm in the right lower pole. There are no suspicious renal lesions without contrast. The adrenal glands and spleen are unremarkable. A gastric band prosthesis is in expected position. Ch anges of lumbar fusion are partially visualized. IMPRESSION: 1. An ill-defined 2.3 cm T2 hyperintense lesion within segment 6 is indeterminate without contrast. T his may represent a region of parenchymal scarring. This appears stable and benignity is favored in t he absence of known malignancy. Postcontrast analysis could increase specificity. Another 13 mm lesio n is likely a benign cyst or hemangioma. 2. 11 mm right renal collecting system calculus with associated urothelial thickening. 3. Incidental pancreas divisum. Electronically signed by: Hetal Lindo MD (09/30/2020 2:21 PM) [facility]
--- NOTE | 2020-09-30 14:24 | KCIC ---
EXAM: Bilateral digital screening mammogram with tomosynthesis. HISTORY: 70-year-old female presents for screening mammography. TECHNIQUE: Full-field digital craniocaudal and mediolateral oblique 2D and 3D tomosynthesis images of both breasts are obtained for evaluation. Computer aided detection was applied. COMPARISON: 12/19/2018 BREAST PARENCHYMAL DENSITY: Level B - Scattered fibroglandular densities. FINDINGS: There are small nodular densities within the 3:00 and 11:00 positions of the right breast a t mid depth, without a clear correlate on the prior study. This may be due to differences in techniqu e. There are additional areas of nodularity within both breasts are stable in appearance. There is no suspicious calcification or architectural distortion. IMPRESSION: BI-RADS Category 0: Incomplete Additional imaging needed. RECOMMENDATION: Further evaluation with a right breast sonogram is recommended to assess nodularity a t the 3:00 and 11:00 positions at mid depth. If your mammogram demonstrates that you have dense breast tissue, which could hide abnormalities, and if you have other risk factors for breast cancer that have been identified, you might benefit from s upplemental screening tests that may be suggested by your ordering physician. Dense breast tissue, i n and of itself, is a relatively common condition. This information is not provided to cause undue c oncern, but rather to raise your awareness and to promote discussion with your physician regarding th e presence of other risk factors, in addition to dense breast tissue. A report of your mammography re sults will be sent to you and your physician. You should contact your physician if you have any ques tions or concerns regarding this report. Mammography is a sensitive method for finding small breast cancers, but it does not detect them all a nd is not a substitute for careful clinical examination. A negative mammogram does not negate a clin ically suspicious finding and should not result in delay in biopsying a clinically suspicious abnorma lity. PQRS compliance statement - Patient information was entered into a reminder system with a target due date for the next mammogram. "Our facility is accredited by the [employer] Mammography Program." Electronically signed by: Josefina Gross MD (09/30/2020 2:21 PM) [email or web address]
--- NOTE | 2020-09-30 14:24 | KCIC ---
EXAM: DUAL ENERGY X-RAY ABSORPTIOMETRY (DEXA). HISTORY: Postmenopausal screening. FINDINGS: The lowest measured T-score is -1.5 in the left total femur, based on a bone mineral densit y of 759 g/cm^2. Refer to the worksheets for full detail. No comparison examinations are available. IMPRESSION: Low bone mass. Bone mineral density yields a T-score between -1.0 and -2.5. Fracture risk is increase d. FRAX was not calculated. METHODOLOGY: Dual energy x-ray absorptiometry was performed to measure bone mineral density. The foll owing analysis is based on the 2019 Official Positions of the International Society for Clinical Dens itometry: Measurements of the hips and the average of L1-L4 are preferred. When the spine and/or hip cannot be feasibly measured or interpreted, or in the setting of hyperparathyroidism, distal radial bone minera l density may be measured. The lumbar spine T-score is based on the average bone mineral density of L1-L4. In the setting of art ifact or anatomic abnormality, some lumbar levels may be excluded, and the remaining levels used for calculation. A single lumbar level is not used for diagnosis, and if only a single level is available for assessment, another anatomic site will be used to assign a diagnosis. The hip T-score is based on the bone mineral density measurement of the femoral neck or total proxima l femur of either side, whichever is lowest. Bilateral mean values are not used for diagnosis. The forearm T-score is derived from 33% of the distal radius of the nondominant forearm. For postmenopausal and perimenopausal women, and men age 50 or older, of all ethnic groups, T-scores are calculated through comparison of the current measurement with the NHANES III database standard fo r females aged 20-29 years. The lowest T-score of the evaluated anatomic sites is used to a ssign a diagnosis based on the World Health Organization densitometric classification. In premenopausal females and males younger than age 50, a Z-score is calculated based on population s pecific reference data for patient sex and self-reported ethnicity. Electronically signed by: Hetal Lindo MD (09/30/2020 2:21 PM) [facility]
== END ==
LOC: KCIC MRI 12:40
PROVIDERS: ATTEND Family Medicine
DX: Z12.31 Encounter for screening mammogram for malignant neoplasm of breast (principal); R16.0 Hepatomegaly, not elsewhere classified; K76.9 Liver disease, unspecified; N20.0 Calculus of kidney; N28.1 Cyst of kidney, acquired; Z90.49 Acquired absence of other specified parts of digestive tract
CPT/HCPCS: 74181; 77063; 77067; 77080; 77081

== ENCOUNTER → 2020-11-05 | Outpatient (CLI) | payer MEDICARE, OTHER ==
--- NOTE | 2020-11-05 13:25 | KCIC ---
Procedure: Targeted/limited right breast ultrasound INDICATION: Abnormal mammogram with small nodular densities in the 3:00 and 11:00 positions of the ri ght breast at middle depth. COMPARISON: Mammograms from 09/30/2020 and 12/19/2018. The areas of concern on mammogram were imaged on, central/11:00 position and central/3:00 position of the right breast. FINDINGS: In the 11:00 position, 11 cm from the nipple, there is tiny cluster of cysts or elongated c yst which measures 7 mm radial by 5 mm interradial by 2 mm AP. This may correspond to the 11:00 mass seen on mammogram. The second tiny nodular density at 3:00/central position shows no sonographic cindy elate. There is no right axillary adenopathy. IMPRESSION: There is a small cyst in the 11:00 position of the right breast, 11 cm from the nipple. I t is uncertain if this correlates with the 11:00 mass seen on mammogram. The other mass seen on mammo gram has no sonographic correlate. Both have a probably benign appearance on mammogram. ASSESSMENT: BI-RADS 3. Probably benign findings. Short interval follow-up is recommended. Recommendations: Diagnostic right mammogram in 6 months. Results were given to the patient at time of this exam. Patient information was entered into a remind er system with a target due date for the next mammogram. A reminder letter will be sent. Electronically signed by: Cari Shea MD (11/05/2020 1:22 PM) [email or web address]
== END ==
LOC: KCIC US 08:35
PROVIDERS: ATTEND Nurse Practitioner Family
DX: R92.8 Other abnormal and inconclusive findings on diagnostic imaging of breast (principal); N60.01 Solitary cyst of right breast; N63.14 Unspecified lump in the right breast, lower inner quadrant; N63.11 Unspecified lump in the right breast, upper outer quadrant
CPT/HCPCS: 76641